=== PATIENT | male | born 1975 | race Caucasian/White ===

== ENCOUNTER 2016-12-31 20:37 | Emergency (ER) | payer OTHER ==
--- NOTE | 2016-12-31 22:50 | DIAGNOSTIC IMAGING REPORT ---
PROCEDURE: XR CHEST 1 VIEW INDICATION: CHEST PAIN TECHNIQUE: Portable AP view (2130 hours). COMPARISON: None. FINDINGS: Lungs are clear. Heart and mediastinum are normal. Thorax is normal. IMPRESSION: 1. Negative chest.
--- NOTE | 2016-12-31 23:16 | ED ORDER SUMMARY ---
..... Patient: MERCY NAJERA OrderSheet [facility] VisitID: [id number] [place] [address] 41y, M Registration Date/Time: 12/31/2016 ORDER SHEET Weight: 136.0 kg (stated) Allergies: Vancomycin GENERAL ORDERS: Chest 1V Urgent (21:12/31/2016 Prashanth THOMAS) (Ack 21:14 CHagkaila ER Asphalt Paving Superintendent) (21:33 MCampbell) Die Try Out Worker (Continuous) (21:12/31/2016 Prashanth THOMAS) (21:13 MWinterer R.N.) CBC w Diff Urgent (:12/31/2016 Prashanth THOMAS) (Ack 21:14 Claribel ER Asphalt Paving Superintendent) (22:04 MWinterer R.N.) CMP Urgent (:12/31/2016 Prashanth THOMAS) (Ack 21:14 Claribel ER Asphalt Paving Superintendent) (22:04 MWinterer R.N.) UA-Culture if indicated Urgent (21:12/31/2016 Prashanth THOMAS) (Ack 21:14 Claribel ER Asphalt Paving Superintendent) (22:48 TBowen R.N.) PT with INR Urgent (21:12/31/2016 Prashanth THOMAS) (Ack 21:14 Claribel ER Asphalt Paving Superintendent) (22:04 MWinterer R.N.) PTT Urgent (21:12/31/2016 Prashanth THOMAS) (Ack 21:14 Claribel ER Asphalt Paving Superintendent) (22:04 MWinterer R.N.) Amylase Urgent (21:12/31/2016 Prashanth THOMAS) (Ack 21:14 Claribel ER Asphalt Paving Superintendent) (22:04 MWinterer R.N.) Lipase Urgent (21:12/31/2016 Prashanth THOMAS) (Ack 21:14 Claribel ER Asphalt Paving Superintendent) (22:04 MWinterer R.N.) CPK Urgent (21:12/31/2016 Prashanth THOMAS) (Ack 21:14 Claribel ER Asphalt Paving Superintendent) (22:04 MWinterer R.N.) Troponin-I Urgent (21:12/31/2016 Prashanth THOMAS) (Ack 21:14 CHagkaila ER Asphalt Paving Superintendent) (22:04 MWinterer R.N.) D-Dimer Urgent (21:11 12/31/2016 Prashanth THOMAS) (Ack 21:14 CHagkaila ER Asphalt Paving Superintendent) (22:04 MWinterer R.N.) BNP Urgent (21:11 12/31/2016 Prashanth THOMAS) (Ack 21:14 CHagerty ER Asphalt Paving Superintendent) (22:04 MWinterer R.N.) Oxygen (2 L/min) (NC) (21:11 12/31/2016 Prashanth THOMAS) (21:13 MWinterer R.N.) Pulse oximeter (21:11 12/31/2016 Prashanth THOMAS) (21:13 MWinterer R.N.) EKG - ER Stat (21:11 12/31/2016 Prashanth THOMAS) (21:13 MWinterer R.N.) MEDICATION ORDERS: Aspirin PO 325 mg (Do not crush or chew, NOW) (21:09 12/31/2016 MWinterer R.N. per protocol) (21:12 MWinterer R.N.) GI Cocktail WHITE PO 30 mL with Lidocaine Viscous Mouth/Throat 15 mL, Maalox Plus Oral 15 mL (NOW) (21:58 12/31/2016 Prashanth THOMAS) (Ack 22:05 MWinterer R.N.) (22:11 MWinterer R.N.) IV FLUIDS: IV Saline Lock (21:11 12/31/2016 Prashanth THOMAS) (21:13 MWinterer R.N.) Protonix IVP 40mg 40 mg (Mix in NS 10ml over 2min) (23:15 12/31/2016 Prashanth THOMAS) (Ack 23:17 RCollier R.N.) (23:21 TBowen R.N.) ORDER SHEET NOTES: [Electronically signed by Camelia Renae R.N. (23:42 12/31/2016)] [Electronically signed by Melvin Butler MD (21:17 01/01/2017)] [Electronically locked/signed by Camelia Renae R.N. (23:42 12/31/2016)]
--- NOTE | 2016-12-31 23:16 | ED NURSING NOTES ---
Clinical Report - Nurses [facility] [address] [place] [address] 12/31/2016 20:39 [id number] Triage time 20:49. Acuity: LEVEL 2. Chief Complaint: CHEST PAIN and NECK PAIN. Alert. No acute distress. --20:55 Candace Batres R.N. 20:49 12/31/16. BP: 155/82. HR: 89. RR: 17 (regular and unlabored). O2 saturation: 99% on room air. Pain level now: 04/21. --20:55 Candace Batres R.N. Weight: 136 kg stated. Height/Length: 67 inches Per Patient. BMI: 47. --20:52 Candace Batres R.N. Medications None. --20:50 Candace Batres R.N. Allergies Some antibiotic . --20:51 Candace Batres R.N. History Arrived by private vehicle. Historian: patient. Primary physician (None). This started yesterday. He has had moderate situational stress involving his daughter and work. 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 PAST MEDICAL HX: Immunizations: up-to-date. SOCIAL HX: Heavy tobacco smoker (cigarette)- less than 1 pack per day. Occasional alcohol use. History of drug use: marijuana. --20:55 Candace Batres R.N. PROBLEMS: Diverticulitis. Herniated Disk. --20:52 Candace Batres R.N. ADDITIONAL SURGERIES: Adenoidectomy. Ankle. Carpal Tunnel Surgery. Colon resection. Neck. Neck Surgery. Tonsillectomy. --20:52 Candace Batres R.N. Interventions ID band on patient. To treatment room. --20:55 Candace Batres R.N. PHYSICAL ASSESSMENT Ambulatory to room. Patient gowned. GENERAL / NEURO / PSYCH: Alert. Oriented X 4. Appears anxious. RESPIRATORY: Respirations not labored. CVS: Capillary refill less than 2 seconds. SKIN: Skin is warm and dry. --20:55 Candace Batres R.N. NURSING PROGRESS NOTES Head of bed elevated. Two patient identifiers checked. Call light placed in reach. Side rails up x 1. Bed placed in lowest position. Brakes of bed on. --20:55 Candace Batres R.N. Patient ready for evaluation- chart flagged. --20:55 Candace Batres R.N. 20:49 12/31/2016 Aspirin PO 325 mg given. --21:12 Ese Garcia R.N. 20:55 12/31/2016 Site #1 started via IV in the left forearm with an 20g angiocath, with aseptic technique and good blood return; one attempt. Saline lock flushed with 10 mL saline (started by Ese, SASHA). --20:56 Candace Batres R.N. 20:59 12/31/2016 Site #1 removed. Catheter intact. Manual pressure and bandage applied (site infiltrated). --21:09 Ese Garcia R.N. 21:04 12/31/2016 Site #2 started via IV in the left hand with an 22g angiocath, with aseptic technique and good blood return; one attempt. Blood drawn: rainbow set. Labeled in the presence of the patient and sent to the lab. Saline lock flushed with 10 mL saline. --21:09 Ese Garcia R.N. 21:37 12/31/16. BP: 129/79. HR: 78. RR: 16. O2 saturation: 98% on room air. Pain level now: 03/22. --21:38 Ese Garcia R.N. 21:38 12/31/16. The patient is resting quietly. HEENT: The patient reports headache. --21:38 Ese Garcia R.N. 22:11 12/31/2016 GI COCKTAIL WHITE (Simethicone) PO 30 mL given. Allergies verified and confirmed 5 rights. --22:11 Ese Garcia R.N. 22:16 12/31/16. Care transferred and report given (Camelia ED RN). --22:16 Ese Garcia R.N. EKG time: (2053). EKG was performed by a lea and shown to the ED physician. --22:17 Will Carey Reassessment after medication administered. Overall patient status- he states feels the same. --22:24 Guy Bethea ( pt still unable to give a UA at this time). --22:25 Guy Bethea 23:21 12/31/2016 PROTONIX 40MG (Pantoprazole Sodium) IVP 40 mg given over 4 minute(s) via site #2. Allergies verified and confirmed 5 rights. IV patency established. IV site checked: no pain, redness, or swelling. IV flushed thoroughly pre- and post-medication administration. IVP given by RN. --23:21 Guy Bethea DISPOSITION / DISCHARGE 23:41 12/31/2016 Site #2 removed upon discharge. Catheter intact. Bandage applied. --23:41 Guy Bethea Departure time: 23:42. Condition at departure: improved. No learning barriers present. Discharge instructions provided and reviewed with the patient. Reviewed warnings. Reviewed medication(s) side effects, precautions, dosing and course information. Prescription(s) given to the patient. Treatments reviewed. Reviewed referrals. Follow up contact number. Patient verbalized understanding. Written instructions provided in Rwandan. No diet instructions, activity restrictions, note given or stop smoking instructions. The patient was discharged by the physician. He was discharged home and accompanied by spouse. He left the Emergency Department ambulatory and via private vehicle. Family member driving. FALL RISK ASSESSMENT: Fall risk assessment completed. No fall risk identified. --23:42 Guy Bethea 23:41 12/31/16. BP: 122/68. HR: 78. RR: 18. O2 saturation: 99%. Temp: deferred. Pain level now: 0/10. --23:42 Guy Bethea Locked/Released at 12/31/2016 23:42 by Guy Bethea
--- NOTE | 2016-12-31 23:16 | ED CLINICAL REPORT ---
Clinical Report - Physicians/Mid Levels [facility] [address] [place] [address] 12/31/2016 20:39 Patient: MERCY NAJERA Time Seen: 21:00. Arrived- By private vehicle. Historian- patient. HISTORY OF PRESENT ILLNESS Chief Complaint: CHEST PAIN. It is described as burning, aching and sharp and it is described as radiating to the neck and upper back. This started yesterday at about 1 PM and is still present. It has been constant and waxing/waning. Onset during emotional upset. At its maximum, severity described as 10 / 10. When seen in the E.D., severity described as 7 / 10. Modifying factors- worsened by movement. Not relieved by anything. The patient has had nausea and has experienced diaphoresis. No vomiting. He has had difficulty breathing ("breathing really hard"). Similar symptoms previously: ( he had a similar event last week but was not evaluated for it). REVIEW OF SYSTEMS No chills or fever. He has experienced sweats and had frequency and diabetic symptoms, including polydipsia, polyuria and fatigue. He has had mild calf pain involving the right leg and left leg (since yesterday). He has had moderate, burning, intermittent abdominal pain (he reports a history of chronic intermittent reflux symptoms). The pain is described as located in the upper abdomen and epigastrium. All systems otherwise negative, except as recorded above. PAST HISTORY PCP - None. Problems: Diverticulitis. Herniated Disk. Additional Surgeries: Adenoidectomy. Ankle. Carpal Tunnel Surgery. Colon resection. Neck. Neck Surgery. Tonsillectomy. Medications: None. Allergies: Vancomycin. SOCIAL HISTORY Current every day heavy tobacco smoker (cigarette)- less than 1 pack per day. Occasional alcohol use. History of occasional drug use: marijuana. Is a local resident. FAMILY HISTORY No history of aortic aneurysm or dissection. Heart disease in grandparent; cancer in first-degree relative (mother and father). ADDITIONAL NOTES The nursing notes have been reviewed. PHYSICAL EXAM Vital Signs: 12/31/2016 20:49 BP: 155/82. HR: 89. RR: 17. O2 saturation: 99%. Pain level now: 04/21. Have been reviewed. Appearance: Alert. Eyes: Pupils equal, round and reactive to light. ENT: Pharynx normal. Neck: Normal inspection. Neck supple. CVS: Normal heart rate and rhythm. Heart sounds normal. Respiratory: No respiratory distress. Breath sounds normal. Abdomen: Soft and nontender. Bowel sounds normal. No organomegaly. No mass. Back: Normal external inspection. Skin: Skin warm and dry. Normal skin color. Normal skin turgor. Extremities: Extremities exhibit normal ROM. No calf tenderness. No lower extremity edema. Neuro: No motor deficit. No sensory deficit. LABS, X-RAYS, AND EKG EKG: Normal sinus rhythm. Rate: 90. Right axis deviation. Prior EKG unavailable. The study has been independently viewed by me. Chest X-ray: No acute disease. The X-rays were independently viewed by me. Laboratory Tests: UA-Culture if indicated: (ELENA: 12/31/2016 22:40) ( [facility] 12/31/2016 22:54) Final results Test Result Flag Units (Reference) URINE COLOR YELLOW URINE APPEARANCE CLEAR URINE GLUCOSE NEGATIVE (NEGATIVE) URINE BILIRUBIN NEGATIVE (NEGATIVE) URINE KETONE NEGATIVE (NEGATIVE) URINE SPECIFIC GRAVITY 1.015 (1.010-1.030) URINE PH 7.5 (5.0-8.0) URINE PROTEIN NEGATIVE (NEGATIVE) URINE UROBILINOGEN 0.2 EU/dL (0.2-1.0) URINE NITRITE NEGATIVE (NEGATIVE) URINE BLOOD NEGATIVE (NEGATIVE) URINE LEUK ESTERASE NEGATIVE (NEGATIVE) URINE RBC 0-1 rbc/hpf (0-1) URINE WBC 0-1 wbc/hpf (0-1) URINE EPITHELIAL CELLS 0-1 EPI/hpf (0-5) URINE BACTERIA NONE SEEN (NONE SEEN) URINE COMMENT CULT NOT INDICATED URINE CULTURES ARE SET-UP BASED ON THE FOLLOWING CRITERIA:POSITIVE NITRITEPOSITIVE LEUKOCYTE ESTERASEGREATER THAN 10 WHITE BLOOD CELLSMODERATE (2+) OR GREATER BACTERIA CBC w Diff: (ELENA: 12/31/2016 21:00) ( [facility] 12/31/2016 21:23) Final results Test Result Flag Units (Reference) WHITE BLOOD COUNT 7.2 K/uL (4.5-11.5) RED BLOOD COUNT 5.25 M/uL (4.50-5.90) HEMOGLOBIN 15.8 gm/dL (13.5-17.5) HEMATOCRIT 46.6 % (41.0-53.0) MEAN CELL VOLUME 89 fL (80-100) MEAN CORPUSCULAR HGB 30 pg (26-34) MEAN CORPUSCULAR HGB CONC 34 g/dL (31-37) RED CELL DISTRIBUTION WIDTH 12.9 % (11.6-14.8) PLATELET COUNT 215 K/uL (150-400) NEUTROPHIL % 58.9 % (50-75) LYMPH % 26.0 % (25-40) MONO % 8.9 % (3-14) EOSINOPHIL % 5.0 H % (0-4) BASOPHIL % 1.2 % (0-2) PT with INR: (ELENA: 12/31/2016 21:00) ( MsgRcvd 12/31/2016 21:39) Final results Test Result Flag Units (Reference) INR 0.9 (0.8-1.2) Low Intensity Therapy: INR 1.5-2.0 PT range 18.5-23.1Mod.Intensity Therapy: INR 2.0-3.0 PT range 23.1-31.5High Intensity Therapy: INR 2.5-3.5 PT range 27.4-35.5High Intensity Therapy 2: INR 3.0-4.0 PT range 31.5-39.3 APTT 27 SECONDS (24-34) D-DIMER QUANTITATIVE < 0.27 L ug/mLFEU (0.27-0.52) The primary value of this quantitative assay relates toits negative predictive value (i.e. exclusion) of pulmonaryembolism/deep vein thrombosis/DIC.Elevated levels of d-dimer may also occur with:, age, cancer, inflammation, liver disease,post-op, infection, hematoma, coronary disease, peripheralarteriopathy, bleeding disorders and thrombolytic treatment.Results should be correlated with other clinical andradiological data.Testing Methodology: Latex Immunoassay BNP: (ELENA: 12/31/2016 21:00) ( MsgRcvd 12/31/2016 21:50) Final results Test Result Flag Units (Reference) B-TYPE NATRIURETIC PEPTIDE 6.7 pg/ml (5-100) CMP: (ELNEA: 12/31/2016 21:00) ( MsgRcvd 12/31/2016 22:35) Final results Test Result Flag Units (Reference) GLUCOSE 121 H mg/dL (70-110) BUN 17 mg/dL (7-18) CREATININE 1.2 mg/dL (0.6-1.3) Estimated GFR >60 mL/min Estimated GFR- >60 mL/min Note: Persistent reduction over 3 months in eGFR<60 mL/min/1.73 m2 defines CKD. Patients with eGFR values>=60 mL/min/1.73 m2 may also have CKD if evidence ofpersistent proteinuria. Additional information may be foundat www.kidney.org. SODIUM 140 mmol/L (136-145) POTASSIUM 3.7 mmol/L (3.5-5.1) CHLORIDE 103 mmol/L (98-107) CARBON DIOXIDE 27 mmol/L (21-32) CALCIUM 8.3 L mg/dL (8.5-10.1) TOTAL PROTEIN 7.4 g/dL (6.4-8.2) ALBUMIN 4.0 g/dL (3.3-5.0) BILIRUBIN, TOTAL 0.4 mg/dL (0.0-1.0) ALKALINE PHOSPHATASE 82 U/L (46-116) AST (SGOT) 21 U/L (15-37) ALT (SGPT) 42 U/L (12-78) LIPASE 152 U/L (73-393) AMYLASE 67 U/L (25-115) CPK 710 H U/L (24-260) TROPONIN I <0.05 ng/mL (0.00-1.5) TROPONIN REFERENCE RANGE:<0.1 NEGATIVE0.1-1.5 INDETERMINANT>1.5 POSITIVE CK-MB 3.6 H ng/mL (0.5-3.2) %CKMB 0.5 % (0.0-4.0) . PROGRESS AND PROCEDURES Course of Care: Patient is stable. Symptoms better. He reports improvement after drinking the GI cocktail. Vital signs have been reviewed. Alert. No acute distress. Breath sounds normal. No respiratory distress. Normal heart rate and rhythm. Heart sounds normal. Abdomen soft and nontender. Skin warm and dry. Patient/family counseled. Old medical records reviewed. Disposition: Discharged. Condition: stable. CLINICAL IMPRESSION Atypical chest pain Gastroesophageal reflux disease with esophagitis. INSTRUCTIONS Avoid alcohol and NSAIDS. Examples of NSAIDS include aspirin, ibuprofen (Advil) and naproxen (Aleve). Avoid salty and spicy foods. Warnings: Further evaluation is necessary. GENERAL WARNINGS: Return or contact your physician immediately if your condition worsens or changes unexpectedly, if not improving as expected, or if other problems arise. Prescription Medications: Omeprazole 20 mg capsules: Take 1 orally once daily. Dispense fifteen (15). No refills. Understanding of the discharge instructions verbalized by patient. Follow-up with: [facility], , , [address], , [place], [address] Follow up tomorrow. Call for an appointment. (Electronically signed by Melvin Butler MD 01/01/2017 21:17)
--- NOTE | 2016-12-31 23:16 | ED NURSING NOTES ---
Clinical Report - Nurses [facility] [address] [place] [address] 12/31/2016 20:39 [id number] Triage time 20:49. Acuity: LEVEL 2. Chief Complaint: CHEST PAIN and NECK PAIN. Alert. No acute distress. --20:55 Candace Batres R.N. 20:49 12/31/16. BP: 155/82. HR: 89. RR: 17 (regular and unlabored). O2 saturation: 99% on room air. Pain level now: 04/21. --20:55 Candace Batres R.N. Weight: 136 kg stated. Height/Length: 67 inches Per Patient. BMI: 47. --20:52 Candace Batres R.N. Medications None. --20:50 Candace Batres R.N. Allergies Some antibiotic . --20:51 Candace Batres R.N. History Arrived by private vehicle. Historian: patient. Primary physician (None). This started yesterday. He has had moderate situational stress involving his daughter and work. 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 PAST MEDICAL HX: Immunizations: up-to-date. SOCIAL HX: Heavy tobacco smoker (cigarette)- less than 1 pack per day. Occasional alcohol use. History of drug use: marijuana. --20:55 Candace Batres R.N. PROBLEMS: Diverticulitis. Herniated Disk. --20:52 Candace Batres R.N. ADDITIONAL SURGERIES: Adenoidectomy. Ankle. Carpal Tunnel Surgery. Colon resection. Neck. Neck Surgery. Tonsillectomy. --20:52 Candace Batres R.N. Interventions ID band on patient. To treatment room. --20:55 Candace Batres R.N. PHYSICAL ASSESSMENT Ambulatory to room. Patient gowned. GENERAL / NEURO / PSYCH: Alert. Oriented X 4. Appears anxious. RESPIRATORY: Respirations not labored. CVS: Capillary refill less than 2 seconds. SKIN: Skin is warm and dry. --20:55 Candace Batres R.N. NURSING PROGRESS NOTES Head of bed elevated. Two patient identifiers checked. Call light placed in reach. Side rails up x 1. Bed placed in lowest position. Brakes of bed on. --20:55 Candace Batres R.N. Patient ready for evaluation- chart flagged. --20:55 Candace Batres R.N. 20:49 12/31/2016 Aspirin PO 325 mg given. --21:12 Ese Garcia R.N. 20:55 12/31/2016 Site #1 started via IV in the left forearm with an 20g angiocath, with aseptic technique and good blood return; one attempt. Saline lock flushed with 10 mL saline (started by Ese, SASHA). --20:56 Candace Batres R.N. 20:59 12/31/2016 Site #1 removed. Catheter intact. Manual pressure and bandage applied (site infiltrated). --21:09 Ese Garcia R.N. 21:04 12/31/2016 Site #2 started via IV in the left hand with an 22g angiocath, with aseptic technique and good blood return; one attempt. Blood drawn: rainbow set. Labeled in the presence of the patient and sent to the lab. Saline lock flushed with 10 mL saline. --21:09 Ese Garcia R.N. 21:37 12/31/16. BP: 129/79. HR: 78. RR: 16. O2 saturation: 98% on room air. Pain level now: 03/22. --21:38 Ese Garcia R.N. 21:38 12/31/16. The patient is resting quietly. HEENT: The patient reports headache. --21:38 Ese Garcia R.N. 22:11 12/31/2016 GI COCKTAIL WHITE (Simethicone) PO 30 mL given. Allergies verified and confirmed 5 rights. --22:11 Ese Garcia R.N. 22:16 12/31/16. Care transferred and report given (Camelia ED RN). --22:16 Ese Garcia R.N. EKG time: (2053). EKG was performed by a lea and shown to the ED physician. --22:17 Will Carey Reassessment after medication administered. Overall patient status- he states feels the same. --22:24 Guy Bethea ( pt still unable to give a UA at this time). --22:25 Guy Bethea 23:21 12/31/2016 PROTONIX 40MG (Pantoprazole Sodium) IVP 40 mg given over 4 minute(s) via site #2. Allergies verified and confirmed 5 rights. IV patency established. IV site checked: no pain, redness, or swelling. IV flushed thoroughly pre- and post-medication administration. IVP given by RN. --23:21 Guy Bethea DISPOSITION / DISCHARGE 23:41 12/31/2016 Site #2 removed upon discharge. Catheter intact. Bandage applied. --23:41 Guy Bethea Departure time: 23:42. Condition at departure: improved. No learning barriers present. Discharge instructions provided and reviewed with the patient. Reviewed warnings. Reviewed medication(s) side effects, precautions, dosing and course information. Prescription(s) given to the patient. Treatments reviewed. Reviewed referrals. Follow up contact number. Patient verbalized understanding. Written instructions provided in Vietnamese. No diet instructions, activity restrictions, note given or stop smoking instructions. The patient was discharged by the physician. He was discharged home and accompanied by spouse. He left the Emergency Department ambulatory and via private vehicle. Family member driving. FALL RISK ASSESSMENT: Fall risk assessment completed. No fall risk identified. --23:42 Guy Bethea 23:41 12/31/16. BP: 122/68. HR: 78. RR: 18. O2 saturation: 99%. Temp: deferred. Pain level now: 0/10. --23:42 Guy Bethea Locked/Released at 12/31/2016 23:42 by Guy Bethea
--- NOTE | 2016-12-31 23:16 | ED ORDER SUMMARY ---
..... Patient: MERCY NAJERA OrderSheet [facility] VisitID: [id number] [place] [address] 41y, M Registration Date/Time: 12/31/2016 ORDER SHEET Weight: 136.0 kg (stated) Allergies: Vancomycin GENERAL ORDERS: Chest 1V Urgent (21:12/31/2016 Prashanth THOMAS) (Ack 21:14 CHagkaila ER Pearl Technician) (21:33 MCampbell) Recreation Supervisor (Continuous) (21:12/31/2016 Prashanth THOMAS) (21:13 MWinterer R.N.) CBC w Diff Urgent (:12/31/2016 Prashanth THOMAS) (Ack 21:14 Claribel ER Pearl Technician) (22:04 MWinterer R.N.) CMP Urgent (:12/31/2016 Prashanth THOMAS) (Ack 21:14 Claribel ER Pearl Technician) (22:04 MWinterer R.N.) UA-Culture if indicated Urgent (21:12/31/2016 Prashanth THOMAS) (Ack 21:14 Claribel ER Pearl Technician) (22:48 TBowen R.N.) PT with INR Urgent (21:12/31/2016 Prashanth THOMAS) (Ack 21:14 Claribel ER Pearl Technician) (22:04 MWinterer R.N.) PTT Urgent (21:12/31/2016 Prashanth THOMAS) (Ack 21:14 Claribel ER Pearl Technician) (22:04 MWinterer R.N.) Amylase Urgent (21:12/31/2016 Prashanth THOMAS) (Ack 21:14 Claribel ER Pearl Technician) (22:04 MWinterer R.N.) Lipase Urgent (21:12/31/2016 Prashanth THOMAS) (Ack 21:14 Claribel ER Pearl Technician) (22:04 MWinterer R.N.) CPK Urgent (21:12/31/2016 Prashanth THOMAS) (Ack 21:14 Claribel ER Pearl Technician) (22:04 MWinterer R.N.) Troponin-I Urgent (21:12/31/2016 Prashanth THOMAS) (Ack 21:14 CHagkaila ER Pearl Technician) (22:04 MWinterer R.N.) D-Dimer Urgent (21:11 12/31/2016 Prashanth THOMAS) (Ack 21:14 CHagkaila ER Pearl Technician) (22:04 MWinterer R.N.) BNP Urgent (21:11 12/31/2016 Prashanth THOMAS) (Ack 21:14 CHagerty ER Pearl Technician) (22:04 MWinterer R.N.) Oxygen (2 L/min) (NC) (21:11 12/31/2016 Prashanth THOMAS) (21:13 MWinterer R.N.) Pulse oximeter (21:11 12/31/2016 Prashanth THOMAS) (21:13 MWinterer R.N.) EKG - ER Stat (21:11 12/31/2016 Prashanth THOMAS) (21:13 MWinterer R.N.) MEDICATION ORDERS: Aspirin PO 325 mg (Do not crush or chew, NOW) (21:09 12/31/2016 MWinterer R.N. per protocol) (21:12 MWinterer R.N.) GI Cocktail WHITE PO 30 mL with Lidocaine Viscous Mouth/Throat 15 mL, Maalox Plus Oral 15 mL (NOW) (21:58 12/31/2016 Prashanth THOMAS) (Ack 22:05 MWinterer R.N.) (22:11 MWinterer R.N.) IV FLUIDS: IV Saline Lock (21:11 12/31/2016 Prashanth THOMAS) (21:13 MWinterer R.N.) Protonix IVP 40mg 40 mg (Mix in NS 10ml over 2min) (23:15 12/31/2016 Prashanth THOMAS) (Ack 23:17 RCollier R.N.) (23:21 TBowen R.N.) ORDER SHEET NOTES: [Electronically signed by Camelia Renae R.N. (23:42 12/31/2016)] [Electronically signed by Melvin Butler MD (21:17 01/01/2017)] [Electronically locked/signed by Camelia Renae R.N. (23:42 12/31/2016)]
--- NOTE | 2017-01-01 21:18 | ED MAR SUMMARY ---
..... Medication Administration Record [facility] [address] [place] [address] Patient: MERCY NAJERA Visit ID: [id number] 41y, M Weight: 136.0 kg Height/Length: 67 in BMI: 47 ALLERGIES: Vancomycin Given 20:49 12/31/2016 Ese Garcia RClaireNClaire Medication Administered: ASPIRIN [PO], Dose: 325 mg PO. Medication Ordered: Aspirin PO 325 mg (Do not crush or chew, NOW). Given 22:11 12/31/2016 Ese Garcia RClaireNClaire Medication Administered: GI COCKTAIL WHITE [PO] (SIMETHICONE), Dose: 30 mL PO. Medication Ordered: GI Cocktail WHITE PO 30 mL with Lidocaine Viscous Mouth/Throat 15 mL, Maalox Plus Oral 15 mL (NOW). Given 23:21 12/31/2016 [place] RClaireNClaire Medication Administered: PROTONIX 40MG [IVP] (PANTOPRAZOLE SODIUM), Dose: 40 mg IVP over 4 minute(s), Site: #2 left hand. Medication Ordered: Protonix IVP 40mg 40 mg (Mix in NS 10ml over 2min).
--- NOTE | 2017-01-01 21:18 | ED DISCHARGE INSTRUCTIONS ---
Patient: MERCY NAJERA General Instructions [facility] VisitID: [id number] [address], [place] [address] 41y, M Registration Date/Time: 12/31/2016 Atypical chest pain Gastroesophageal reflux disease with esophagitis. INSTRUCTIONS Avoid alcohol and NSAIDS. Examples of NSAIDS include aspirin, ibuprofen (Advil) and naproxen (Aleve). Avoid salty and spicy foods. Warnings: Further evaluation is necessary. GENERAL WARNINGS: Return or contact your physician immediately if your condition worsens or changes unexpectedly, if not improving as expected, or if other problems arise. Prescription Medications: Omeprazole 20 mg capsules: Take 1 orally once daily. Dispense fifteen (15). No refills. Understanding of the discharge instructions verbalized by patient. Follow-up with: [facility], , , [address], , [place], [address] Follow up tomorrow. Call for an appointment. ADDITIONAL INFORMATION Chest Pain, Noncardiac Based on your visit today, the exact cause of your chest pain is not certain. Your condition does not seem serious and your pain does not appear to be coming from your heart. However, sometimes the signs of a serious problem take more time to appear. Therefore, please watch for the warning signs listed below. Home Care: Rest today and avoid strenuous activity. Take any prescribed medicine as directed. Follow Up with your doctor or this facility as instructed or if you do not start to feel better within 24 hours. Get Prompt Medical Attention if any of the following occur: A change in the type of pain: if it feels different, becomes more severe, lasts longer, or begins to spread into your shoulder, arm, neck, jaw or back Shortness of breath or increased pain with breathing Cough with dark colored sputum (phlegm) or blood Weakness, dizziness, or fainting Fever of 100.4F (38C) or higher, or as directed by your healthcare provider Swelling, pain or redness in one leg GERD (Adult) The esophagus is a tube that carries food from the mouth to the stomach. A valve at the lower end of the esophagus prevents stomach acid from flowing upward. If this valve does not work properly, acid from the stomach enters the esophagus. If this occurs over and over, the acid will injure the lining of the esophagus. This condition is called GERD (gastroesophageal reflux disease) or acid reflux. When stomach acid flows upward into the esophagus, it causes burning, pressure or sharp pain in the upper abdomen or mid to lower chest. The pain can spread to the neck, back, or shoulder, similar to heart pain (angina). There may be belching, an acid taste in the back of the throat, chronic cough, or sore throat or hoarseness. GERD symptoms often occur during the day after a big meal, but it can also occur at night when lying down. Smoking,as well as drinking alcohol, increases the risk of GERD. GERD is a chronic condition. Once it begins, it is often lifelong. Treatment includes changes in eating habits and the use of acid shellie medications to decrease the amount of acid in the stomach. Symptoms often improve with treatment, but if treatment is stopped, the symptoms usually return after a few months. So most persons with GERD will need to continue treatment. Home Care: Take the prescribed acid shellie medication for the full course of treatment even if you begin to feel better sooner. This medication can take up to several days to fully control your symptoms. If you cant afford the prescribed medication, you can try [id number]-gto-wpemrvs acid blockers, such as Pepcid AC, Tagamet, Zantac, or Aciphex. If these do not relieve your symptoms, a stronger acid-shellie can be tried, such as Prilosec OTC. You can use antacids, such as Tums, Rolaids, Mylanta, or Maalox, for pain. This will be useful the first few days after starting acid blockers when the blockers havent started working yet. Follow the directions on the label. Liquid antacids may work better than tablets. Note that antacids can interfere with absorption of certain medications. Specifically, do not take Tagamet (cimetidine), Zantac (ranitidine), or Carafate (sucralfate) within 1 hour of taking an antacid. Talk with your pharmacist if you have any questions. Limit or avoid fatty, fried, and spicy foods, as well as coffee, chocolate, mint, and foods with high acid content such as tomatoes and citrus fruit and juices (orange, grapefruit, lemon). Avoid alcohol and smoking. Dont eat large meals, especially at night. Frequent, smaller meals are best. Do not lie down right after eating. And dont eat anything 3 hours before going to bed. If you are overweight, losing weight will reduce symptoms. Women should not wear corsets or girdles because this increases pressure on the stomach and worsens reflux. If your symptoms occur during sleep, use a foam wedge to elevate your upper body (not just your head.) Or, place 4" blocks under the head of your bed. Follow Up with your doctor or as advised by our staff. Further testing may be needed. If you do not begin to improve over the next 4 days, contact your doctor. If you had an x-ray, CT scan, or ECG (electrocardiogram), it will be reviewed by a specialist. Youll be notified of any new findings that affect your care. Get Prompt Medical Attention if any of the following occur: Stomach pain gets worse or moves to the lower right abdomen (appendix area) Chest pain appears or gets worse, or spreads to the back, neck, shoulder, or arm Frequent vomiting (cant keep down liquids) Blood in the stool or vomit (red or black in color) Feeling weak or dizzy, fainting, or trouble breathing Fever of 100.4F (38C) or higher, or as directed by your healthcare provider Florien Diet A bland diet is used for patients with an upset stomach. It consists of foods that are mild and easy to digest. It is better to eat small frequent meals rather than three large meals a day. BEVERAGES OK: Fruit juices, non-caffeinated teas and coffee, non-carbonated stark AVOID: Carbonated beverage, caffeinated tea and coffee, all alcoholic beverages BREAD OK: Refined white, wheat or rye bread, jone or soda crackers, [place] toast, plain rolls, bagels AVOID: Whole-grain bread CEREAL OK: Refined cereals: cooked or ready to eat AVOID: Whole grain cereals and granola, or those containing bran, seeds or nuts DESSERTS OK: Peanut butter and all others except those to "avoid" AVOID: Chocolate, cocoa, coconut, popcorn, nuts, seeds, jam, marmalade FRUITS OK: Canned, cooked, frozen or fresh fruits without seeds or tough skin AVOID: Olives, skin and seeds of fruit MEATS OK: All fresh or preserved meat, fish and fowl AVOID: Any that are prepared with those spices to "avoid" CHEESE & EGGS OK: Eggs, cottage cheese, cream cheese, other cheeses AVOID: All cheeses made with those spices to "avoid" POTATOES & PASTA OK: Potato, rice, macaroni, noodles, spaghetti AVOID: None SOUPS OK: All soups without heavy seasoning AVOID: Soups made with those spices to "avoid" VEGETABLES OK: Canned, cooked, fresh or frozen mildly flavored vegetables without seeds, skins or coarse fiber AVOID: Vegetables prepared with those spices to "avoid"; skin and seeds of vegetables and those with coarse fiber SPICES OK: Salt, lemon and [place] juice, vinegar, all extracts, rae, cinnamon, thyme, mace, allspice, paprika AVOID: [place] powder, cloves, pepper, seed spices, garlic, gravy pickles, highly seasoned salad dressings Omeprazole Magnesium Gastro-resistant tablet What is this medicine? OMEPRAZOLE (oh ME pray zol) prevents the production of acid in the stomach. It is used to treat the symptoms of heartburn. You can buy this medicine without a prescription. This product is not for long-term use, unless otherwise directed by your doctor or health healthcare administration internship. How should I use this medicine? Take this medicine by mouth. Follow the directions on the product label. If you are taking this medicine without a prescription, take one tablet every day. Do not use for longer than 14 days or repeat a course of treatment more often than every 4 months unless directed by a doctor or healthcare professional. Take your dose at regular intervals every 24 hours. Swallow the tablet whole with a drink of water. Do not crush, break or chew. This medicine works best if taken on an empty stomach 30 minutes before breakfast. If you are using this medicine with the prescription of your doctor or healthcare professional, follow the directions you were given. Do not take your medicine more often than directed. Talk to your wallpaper scraper regarding the use of this medicine in children. Special care may be needed. What side effects may I notice from receiving this medicine? Side effects that you should report to your doctor or health healthcare administration internship as soon as possible: allergic reactions like skin rash, itching or hives, swelling of the face, lips, or tongue bone, muscle or joint pain breathing problems chest pain or chest tightness dark yellow or brown urine diarrhea dizziness fast, irregular heartbeat feeling faint or lightheaded fever or sore throat muscle spasm palpitations redness, blistering, peeling or loosening of the skin, including inside the mouth seizures tremors unusual bleeding or bruising unusually weak or tired yellowing of the eyes or skin Side effects that usually do not require medical attention (Report these to your doctor or health healthcare administration internship if they continue or are bothersome.): constipation dry mouth headache loose stools nausea What may interact with this medicine? Do not take this medicine with any of the following medications: atazanavir clopidogrel nelfinavir This medicine may also interact with the following medications: ampicillin certain medicines for anxiety or sleep certain medicines that treat or prevent blood clots like warfarin cyclosporine diazepam digoxin disulfiram iron salts phenytoin prescription medicine for fungal or yeast infection like itraconazole, ketoconazole, voriconazole saquinavir tacrolimus What if I miss a dose? If you miss a dose, take it as soon as you can. If it is almost time for your next dose, take only that dose. Do not take double or extra doses. Where should I keep my medicine? Keep out of the reach of children. Store at room temperature between 20 and 25 degrees C (68 and 77 degrees F). Protect from light and moisture. Throw away any unused medicine after the expiration date. What should I tell my health care provider before I take this medicine? They need to know if you have any of these conditions: black or bloody stools chest pain difficulty swallowing have had heartburn for over 3 months have heartburn with dizziness, lightheadedness or sweating liver disease stomach pain unexplained weight loss vomiting with blood wheezing an unusual or allergic reaction to omeprazole, other medicines, foods, dyes, or preservatives or trying to get breast-feeding What should I watch for while using this medicine? It can take several days before your heartburn gets better. Check with your doctor or health healthcare administration internship if your condition does not start to get better, or if it gets worse. Do not treat diarrhea with over the counter products. Contact your doctor if you have diarrhea that lasts more than 2 days or if it is severe and watery. Do not treat yourself for heartburn with this medicine for more than 14 days in a row. You should only use this medicine for a 2-week treatment period once every 4 months. If your symptoms return shortly after your therapy is complete, or within the 4 month time frame, call your doctor or health healthcare administration internship. You have been given the following additional information: Chest Pain, Noncardiac GERD (Adult) Diet, Florien (Adult) Omeprazole Magnesium Gastro-resistant tablet (Electronically signed by Melvin Butler MD 01/01/2017 21:17)
--- NOTE | 2017-01-01 21:18 | ED MED RECONCILIATION SUMMARY ---
Patient: MERCY NAJERA Medication Reconciliation Report [facility] VisitID: [id number] [address] [place] [address] 41y, M Registration Date/Time: 12/31/2016 Weight: 136.0 kg Height/Length: 67 in. BMI: 47.0 ALLERGIES: Vancomycin The patient's Home Medications are listed below: NONE. The source(s) of the original Home Medication information: Not obtained. The following Medications were given to the patient in the Emergency Department: Aspirin [PO] PO 325 mg, administered: 12/31/2016 8:49:00 PM GI COCKTAIL WHITE [PO] PO 30 mL, administered: 12/31/2016 10:11:00 PM PROTONIX 40MG [IVP] IVP 40 mg, administered: 12/31/2016 11:21:00 PM The following Medications were prescribed to the patient: Omeprazole 20 mg capsules: Take 1 orally once daily. Dispense fifteen (15). No refills. -- Melvin Butler MD
--- NOTE | 2017-01-01 21:18 | ED DISCHARGE INSTRUCTIONS ---
Patient: MERCY NAJERA General Instructions [facility] VisitID: [id number] [address], [place] [address] 41y, M Registration Date/Time: 12/31/2016 Atypical chest pain Gastroesophageal reflux disease with esophagitis. INSTRUCTIONS Avoid alcohol and NSAIDS. Examples of NSAIDS include aspirin, ibuprofen (Advil) and naproxen (Aleve). Avoid salty and spicy foods. Warnings: Further evaluation is necessary. GENERAL WARNINGS: Return or contact your physician immediately if your condition worsens or changes unexpectedly, if not improving as expected, or if other problems arise. Prescription Medications: Omeprazole 20 mg capsules: Take 1 orally once daily. Dispense fifteen (15). No refills. Understanding of the discharge instructions verbalized by patient. Follow-up with: [facility], , , [address], , [place], [id number] Follow up tomorrow. Call for an appointment. ADDITIONAL INFORMATION Chest Pain, Noncardiac Based on your visit today, the exact cause of your chest pain is not certain. Your condition does not seem serious and your pain does not appear to be coming from your heart. However, sometimes the signs of a serious problem take more time to appear. Therefore, please watch for the warning signs listed below. Home Care: Rest today and avoid strenuous activity. Take any prescribed medicine as directed. Follow Up with your doctor or this facility as instructed or if you do not start to feel better within 24 hours. Get Prompt Medical Attention if any of the following occur: A change in the type of pain: if it feels different, becomes more severe, lasts longer, or begins to spread into your shoulder, arm, neck, jaw or back Shortness of breath or increased pain with breathing Cough with dark colored sputum (phlegm) or blood Weakness, dizziness, or fainting Fever of 100.4F (38C) or higher, or as directed by your healthcare provider Swelling, pain or redness in one leg GERD (Adult) The esophagus is a tube that carries food from the mouth to the stomach. A valve at the lower end of the esophagus prevents stomach acid from flowing upward. If this valve does not work properly, acid from the stomach enters the esophagus. If this occurs over and over, the acid will injure the lining of the esophagus. This condition is called GERD (gastroesophageal reflux disease) or acid reflux. When stomach acid flows upward into the esophagus, it causes burning, pressure or sharp pain in the upper abdomen or mid to lower chest. The pain can spread to the neck, back, or shoulder, similar to heart pain (angina). There may be belching, an acid taste in the back of the throat, chronic cough, or sore throat or hoarseness. GERD symptoms often occur during the day after a big meal, but it can also occur at night when lying down. Smoking,as well as drinking alcohol, increases the risk of GERD. GERD is a chronic condition. Once it begins, it is often lifelong. Treatment includes changes in eating habits and the use of acid shellie medications to decrease the amount of acid in the stomach. Symptoms often improve with treatment, but if treatment is stopped, the symptoms usually return after a few months. So most persons with GERD will need to continue treatment. Home Care: Take the prescribed acid shellie medication for the full course of treatment even if you begin to feel better sooner. This medication can take up to several days to fully control your symptoms. If you cant afford the prescribed medication, you can try [id number] acid blockers, such as Pepcid AC, Tagamet, Zantac, or Aciphex. If these do not relieve your symptoms, a stronger acid-shellie can be tried, such as Prilosec OTC. You can use antacids, such as Tums, Rolaids, Mylanta, or Maalox, for pain. This will be useful the first few days after starting acid blockers when the blockers havent started working yet. Follow the directions on the label. Liquid antacids may work better than tablets. Note that antacids can interfere with absorption of certain medications. Specifically, do not take Tagamet (cimetidine), Zantac (ranitidine), or Carafate (sucralfate) within 1 hour of taking an antacid. Talk with your pharmacist if you have any questions. Limit or avoid fatty, fried, and spicy foods, as well as coffee, chocolate, mint, and foods with high acid content such as tomatoes and citrus fruit and juices (orange, grapefruit, lemon). Avoid alcohol and smoking. Dont eat large meals, especially at night. Frequent, smaller meals are best. Do not lie down right after eating. And dont eat anything 3 hours before going to bed. If you are overweight, losing weight will reduce symptoms. Women should not wear corsets or girdles because this increases pressure on the stomach and worsens reflux. If your symptoms occur during sleep, use a foam wedge to elevate your upper body (not just your head.) Or, place 4" blocks under the head of your bed. Follow Up with your doctor or as advised by our staff. Further testing may be needed. If you do not begin to improve over the next 4 days, contact your doctor. If you had an x-ray, CT scan, or ECG (electrocardiogram), it will be reviewed by a specialist. Youll be notified of any new findings that affect your care. Get Prompt Medical Attention if any of the following occur: Stomach pain gets worse or moves to the lower right abdomen (appendix area) Chest pain appears or gets worse, or spreads to the back, neck, shoulder, or arm Frequent vomiting (cant keep down liquids) Blood in the stool or vomit (red or black in color) Feeling weak or dizzy, fainting, or trouble breathing Fever of 100.4F (38C) or higher, or as directed by your healthcare provider [place] Diet A bland diet is used for patients with an upset stomach. It consists of foods that are mild and easy to digest. It is better to eat small frequent meals rather than three large meals a day. BEVERAGES OK: Fruit juices, non-caffeinated teas and coffee, non-carbonated stark AVOID: Carbonated beverage, caffeinated tea and coffee, all alcoholic beverages BREAD OK: Refined white, wheat or rye bread, jone or soda crackers, [place] toast, plain rolls, bagels AVOID: Whole-grain bread CEREAL OK: Refined cereals: cooked or ready to eat AVOID: Whole grain cereals and granola, or those containing bran, seeds or nuts DESSERTS OK: Peanut butter and all others except those to "avoid" AVOID: Chocolate, cocoa, coconut, popcorn, nuts, seeds, jam, marmalade FRUITS OK: Canned, cooked, frozen or fresh fruits without seeds or tough skin AVOID: Olives, skin and seeds of fruit MEATS OK: All fresh or preserved meat, fish and fowl AVOID: Any that are prepared with those spices to "avoid" CHEESE & EGGS OK: Eggs, cottage cheese, cream cheese, other cheeses AVOID: All cheeses made with those spices to "avoid" POTATOES & PASTA OK: Potato, rice, macaroni, noodles, spaghetti AVOID: None SOUPS OK: All soups without heavy seasoning AVOID: Soups made with those spices to "avoid" VEGETABLES OK: Canned, cooked, fresh or frozen mildly flavored vegetables without seeds, skins or coarse fiber AVOID: Vegetables prepared with those spices to "avoid"; skin and seeds of vegetables and those with coarse fiber SPICES OK: Salt, lemon and [place] juice, vinegar, all extracts, rae, cinnamon, thyme, mace, allspice, paprika AVOID: [place] powder, cloves, pepper, seed spices, garlic, gravy pickles, highly seasoned salad dressings Omeprazole Magnesium Gastro-resistant tablet What is this medicine? OMEPRAZOLE (oh ME pray zol) prevents the production of acid in the stomach. It is used to treat the symptoms of heartburn. You can buy this medicine without a prescription. This product is not for long-term use, unless otherwise directed by your doctor or health care specialist. How should I use this medicine? Take this medicine by mouth. Follow the directions on the product label. If you are taking this medicine without a prescription, take one tablet every day. Do not use for longer than 14 days or repeat a course of treatment more often than every 4 months unless directed by a doctor or healthcare professional. Take your dose at regular intervals every 24 hours. Swallow the tablet whole with a drink of water. Do not crush, break or chew. This medicine works best if taken on an empty stomach 30 minutes before breakfast. If you are using this medicine with the prescription of your doctor or healthcare professional, follow the directions you were given. Do not take your medicine more often than directed. Talk to your crackling press operator regarding the use of this medicine in children. Special care may be needed. What side effects may I notice from receiving this medicine? Side effects that you should report to your doctor or health care specialist as soon as possible: allergic reactions like skin rash, itching or hives, swelling of the face, lips, or tongue bone, muscle or joint pain breathing problems chest pain or chest tightness dark yellow or brown urine diarrhea dizziness fast, irregular heartbeat feeling faint or lightheaded fever or sore throat muscle spasm palpitations redness, blistering, peeling or loosening of the skin, including inside the mouth seizures tremors unusual bleeding or bruising unusually weak or tired yellowing of the eyes or skin Side effects that usually do not require medical attention (Report these to your doctor or health care specialist if they continue or are bothersome.): constipation dry mouth headache loose stools nausea What may interact with this medicine? Do not take this medicine with any of the following medications: atazanavir clopidogrel nelfinavir This medicine may also interact with the following medications: ampicillin certain medicines for anxiety or sleep certain medicines that treat or prevent blood clots like warfarin cyclosporine diazepam digoxin disulfiram iron salts phenytoin prescription medicine for fungal or yeast infection like itraconazole, ketoconazole, voriconazole saquinavir tacrolimus What if I miss a dose? If you miss a dose, take it as soon as you can. If it is almost time for your next dose, take only that dose. Do not take double or extra doses. Where should I keep my medicine? Keep out of the reach of children. Store at room temperature between 20 and 25 degrees C (68 and 77 degrees F). Protect from light and moisture. Throw away any unused medicine after the expiration date. What should I tell my health care provider before I take this medicine? They need to know if you have any of these conditions: black or bloody stools chest pain difficulty swallowing have had heartburn for over 3 months have heartburn with dizziness, lightheadedness or sweating liver disease stomach pain unexplained weight loss vomiting with blood wheezing an unusual or allergic reaction to omeprazole, other medicines, foods, dyes, or preservatives or trying to get breast-feeding What should I watch for while using this medicine? It can take several days before your heartburn gets better. Check with your doctor or health care specialist if your condition does not start to get better, or if it gets worse. Do not treat diarrhea with over the counter products. Contact your doctor if you have diarrhea that lasts more than 2 days or if it is severe and watery. Do not treat yourself for heartburn with this medicine for more than 14 days in a row. You should only use this medicine for a 2-week treatment period once every 4 months. If your symptoms return shortly after your therapy is complete, or within the 4 month time frame, call your doctor or health care specialist. You have been given the following additional information: Chest Pain, Noncardiac GERD (Adult) Diet, [place] (Adult) Omeprazole Magnesium Gastro-resistant tablet (Electronically signed by Melvin Butler MD 01/01/2017 21:17)
--- NOTE | 2017-01-01 21:18 | ED MAR SUMMARY ---
..... Medication Administration Record [facility] [address] [place] [address] Patient: MERCY NAJERA Visit ID: [id number] 41y, M Weight: 136.0 kg Height/Length: 67 in BMI: 47 ALLERGIES: Vancomycin Given 20:49 12/31/2016 Ese Garcia RClaireNClaire Medication Administered: ASPIRIN [PO], Dose: 325 mg PO. Medication Ordered: Aspirin PO 325 mg (Do not crush or chew, NOW). Given 22:11 12/31/2016 Ese Garcia RClaireNClaire Medication Administered: GI COCKTAIL WHITE [PO] (SIMETHICONE), Dose: 30 mL PO. Medication Ordered: GI Cocktail WHITE PO 30 mL with Lidocaine Viscous Mouth/Throat 15 mL, Maalox Plus Oral 15 mL (NOW). Given 23:21 12/31/2016 [place] Medication Administered: PROTONIX 40MG [IVP] (PANTOPRAZOLE SODIUM), Dose: 40 mg IVP over 4 minute(s), Site: #2 left hand. Medication Ordered: Protonix IVP 40mg 40 mg (Mix in NS 10ml over 2min).
--- NOTE | 2017-01-01 21:18 | ED MED RECONCILIATION SUMMARY ---
Patient: MERCY NAJERA Medication Reconciliation Report [facility] VisitID: [id number] [address] [place] [address] 41y, M Registration Date/Time: 12/31/2016 Weight: 136.0 kg Height/Length: 67 in. BMI: 47.0 ALLERGIES: Vancomycin The patient's Home Medications are listed below: NONE. The source(s) of the original Home Medication information: Not obtained. The following Medications were given to the patient in the Emergency Department: Aspirin [PO] PO 325 mg, administered: 12/31/2016 8:49:00 PM GI COCKTAIL WHITE [PO] PO 30 mL, administered: 12/31/2016 10:11:00 PM PROTONIX 40MG [IVP] IVP 40 mg, administered: 12/31/2016 11:21:00 PM The following Medications were prescribed to the patient: Omeprazole 20 mg capsules: Take 1 orally once daily. Dispense fifteen (15). No refills. -- Melvin Butler MD
== END 2016-12-31 23:40 | disposition home or self-care (01) ==
LOC: ED SRH 20:37
DX: R07.89 Other chest pain (principal); K21.9 Gastro-esophageal reflux disease without esophagitis; F17.210 Nicotine dependence, cigarettes, uncomplicated; Z88.1 Allergy status to other antibiotic agents
CPT/HCPCS: 90004; 90100; 90616; 90617; 91320; 91556; 92235; 92530; 92610; 94001; 94060; 95059